=== PATIENT | female | born 1945 | race Caucasian/White ===

== ENCOUNTER → 2018-04-08 | Outpatient (CLI) | payer OTHER ==
[2015-08-28 12:11] VITALS: BP 161/82
== END ==
LOC: RAD 13:08
PROVIDERS: ATTEND Internal Medicine
DX: Z12.31 Encounter for screening mammogram for malignant neoplasm of breast (principal)
CPT/HCPCS: 77067

== ENCOUNTER 2023-07-14 10:34 | Inpatient (IN) ==
--- NOTE | 2023-07-14 11:32 | DR.EXTPAIN ---
HPI Time seen Time Seen by Provider: 07/14/23 11:31 PCP Primary Care Physician: marce Complaint/Symptoms Chief Complaint:: feet swelling and pain to the right leg up. face noted to be puffy and feels very weak like she is going to pass out. treated for h pylori per dr. zheng but has been having diarrhea for the last 3 weeks. yesterday was almost back to normal stool. Self Treatment fo Chief Complaint: taking meds for h pylori COVID-19 Coronavirus risk:travel/contact w/high risk person: No Has patient experienced Coronavirus symptoms: No Source History Provided: Patient Mode of arrival Mode of Arrival: Wheelchair Timing Onset of Chief Complaint: 07/11/23 PMH PMH Past Medical History: Yes Past Medical History: Dyslipidemia, Hypertension and Sleep Apnea Past Surgical History: Yes Surgical History: , Cholecystectomy, Hysterectomy and Ortho Surgery Family History History of Family Medical Conditions: Yes Family Medical History: Diabetes Mellitus, ID and Coronary Artery Disease Social History Does any household member use tobacco: No Alcohol Use: None Do you use any recreational Drugs:: No Lives With: Alone Lives Where: Home Travel Risk Coronavirus risk:travel/contact w/high risk person: No Has patient experienced Coronavirus symptoms: No Infectious screening In the last 2 months have you had wt loss of >10#?: NO Have you had fever, night sweats or hemotysis?: No Have you traveled outside the country in the last 6 months?: No Isolation: Standard PE Vital Signs Vitals: Vital Signs Pulse Rate 102 Pulse Rate 102 Pulse Rate 97 Pulse Rate 90 Pulse Rate 89 Pulse Rate 86 Pulse Rate 85 Pulse Rate 82 Pulse Rate 87 Pulse Rate 87 Pulse Rate 82 Pulse Rate 86 Pulse Rate 84 Pulse Rate 83 Pulse Rate 83 Pulse Rate 88 Pulse Rate 85 Pulse Rate 95 Respiratory Rate 16 Respiratory Rate 18 Respiratory Rate 19 Respiratory Rate 20 Respiratory Rate 16 Respiratory Rate 16 Respiratory Rate 16 Respiratory Rate 24 Respiratory Rate 20 Respiratory Rate 16 Respiratory Rate 15 Respiratory Rate 18 Respiratory Rate 17 Respiratory Rate 16 Respiratory Rate 15 Respiratory Rate 16 Respiratory Rate 19 Respiratory Rate 15 Respiratory Rate 21 Blood Pressure 149/67 Blood Pressure 145/69 Blood Pressure 144/67 Blood Pressure 177/77 Blood Pressure 138/60 Blood Pressure 139/63 Blood Pressure 177/74 ROR Labs Reviewed 07/14/23 11:56 07/14/23 11:56 Laboratory: WBC 6.4 X10^3/uL (3.6-10.0) 07/14/23 11:56 RBC 3.19 X10^6/uL (3.5-5.4) L 07/14/23 11:56 Hgb 9.9 g/dL (12.0-16.0) L 07/14/23 11:56 Hct 29.7 % (36.0-47.0) L 07/14/23 11:56 MCV 93.1 fL (80.0-100.0) 07/14/23 11:56 MCH 30.9 pg (27.0-34.0) 07/14/23 11:56 MCHC 33.2 g/dL (33.0-35.0) 07/14/23 11:56 RDW 14.0 % (11.6-16.5) 07/14/23 11:56 Plt Count 226 X10^3/uL (150.0-450.0) 07/14/23 11:56 MPV 6.8 fL (7.4-11.0) L 07/14/23 11:56 Neut % (Auto) 65.4 % (42.0-75.0) 07/14/23 11:56 Lymph % (Auto) 21.0 % (21.0-51.0) 07/14/23 11:56 [place] % (Auto) 11.4 % (0.0-13.0) 07/14/23 11:56 Eos % (Auto) 1.8 % (0.9-2.9) 07/14/23 11:56 Baso % (Auto) 0.4 % (0.2-1.0) 07/14/23 11:56 Neut # (Auto) 4.2 x10^3/uL (2.2-4.8) 07/14/23 11:56 Lymph # (Auto) 1.3 X10^3/uL (1.3-2.9) 07/14/23 11:56 [place] # (Auto) 0.7 x10^3/uL (0.3-0.8) 07/14/23 11:56 Eos # (Auto) 0.1 x10^3/uL (0.0-0.2) 07/14/23 11:56 Baso # (Auto) 0.0 X10^3/uL (0.0-0.1) 07/14/23 11:56 Absolute Nucleated RBC 0.0 /100WBC 07/14/23 11:56 Sodium 138 mmol/L (136-145) 07/14/23 11:56 Corrected Sodium TNP 07/14/23 11:56 Potassium 3.9 mmol/L (3.5-5.1) 07/14/23 11:56 Chloride 105 mmol/L (98-107) 07/14/23 11:56 Carbon Dioxide 26.2 mmol/L (21-32) 07/14/23 11:56 BUN 17 mg/dL (7-18) 07/14/23 11:56 Creatinine 1.35 mg/dL (0.55-1.02) H 07/14/23 11:56 Est GFR (MDRD) Af Amer 49 (>60) L 07/14/23 11:56 Est GFR (MDRD) Non-Af 40 (>60) L 07/14/23 11:56 Glucose 90 mg/dL (65-99) 07/14/23 11:56 Calcium 8.6 mg/dL (8.5-10.1) 07/14/23 11:56 Corrected Calcium 9.3 mg/dL (8.5-10.1) 07/14/23 11:56 Total Bilirubin 0.30 mg/dL (0.2-1.0) 07/14/23 11:56 AST 37 Units/L (15-37) 07/14/23 11:56 ALT 34 Units/L (12-78) 07/14/23 11:56 Alkaline Phosphatase 161 Units/L (46-116) H 07/14/23 11:56 Creatine Kinase 52 Units/L (26-192) 07/14/23 11:56 Troponin I High Sens 14.1 ng/L (4.0-60.0) 07/14/23 11:56 Total Protein 6.0 g/dL (6.4-8.2) L 07/14/23 11:56 Albumin 3.1 g/dL (3.4-5.0) L 07/14/23 11:56 Globulin 2.9 g/dL (2.5-4.5) 07/14/23 11:56 Albumin/Globulin Ratio 1.1 Ratio (1.1-2.1) 07/14/23 11:56 Specimen Type Clean catch urine 07/14/23 15:10 Urine Color Yellow (YELLOW) 07/14/23 15:10 Urine Appearance Clear (CLEAR) 07/14/23 15:10 Urine pH 5.0 (5.0 - 8.0) 07/14/23 15:10 Ur Specific [place] 1.020 (1.000-1.030) 07/14/23 15:10 Urine Protein Negative (NEGATIVE) 07/14/23 15:10 Urine Glucose (UA) Negative (NEGATIVE) 07/14/23 15:10 Urine Ketones Negative (NEGATIVE) 07/14/23 15:10 Urine Blood 2+ (NEGATIVE) 07/14/23 15:10 Urine Nitrite Negative (NEGATIVE) 07/14/23 15:10 Urine Bilirubin Negative (NEGATIVE) 07/14/23 15:10 Urine Urobilinogen Normal (NORMAL) 07/14/23 15:10 Ur Leukocyte Esterase Negative (NEGATIVE) 07/14/23 15:10 Urine RBC 0-2 /HPF (0-3) 07/14/23 15:10 Urine WBC None seen /HPF (0-5) 07/14/23 15:10 Ur Squamous Epith Cells Negative /HPF (NEGATIVE) 07/14/23 15:10 Urine Bacteria Negative /HPF (NEGATIVE) 07/14/23 15:10 Ur Culture Indicated? No/not indicated 07/14/23 15:10 SARS CoV-2 RNA Rapid JACOB Negative (NEGATIVE) 07/14/23 14:12 Opioid Opioid Risk Tool Age (Dragan box if 16-45): No History of Preadolescent Sexual Abuse: No Total: 0 Total Score Risk Category: Low Risk Copyright: Keyshawn GODDARD predicting aberrant behaviors Discharge Plan Discharge Plan Patient Disposition: 09 ADMITTED INPATIENT Condition: Stable Orders to Discharge Patient Discharge Orders: Transfer (Routine); Ordered 07/14/23 Ordered By: RAIN GARG
[2023-07-14] MEDS ORDERED: NS 1,000 ML IV 1,000 ML ONE (11:49)
[2023-07-14] MEDS: NS 1,000 ML IV 1,000 ML IV SCH (12:01)
--- NOTE | 2023-07-14 12:02 | EKG ---
Test Reason : HYPERTENSION Blood Pressure : */* mmHG Vent. Rate : 66 BPM Atrial Rate : 66 BPM P-R Int : 164 ms QRS Dur : 80 ms QT Int : 424 ms P-R-T Axes : 61 14 47 degrees QTc Int : 444 ms Normal sinus rhythm Septal infarct , age undetermined Abnormal ECG No previous ECGs available Referred By: Confirmed By:
[2023-07-14 12:11] LABS: BASOPHILS % (AUTO) 0.4 % (0.2-1.0); EOSINOPHILS # (AUTO) 0.1 x10^3/uL (0.0-0.2); EOSINOPHILS % (AUTO) 1.8 % (0.9-2.9); HEMATOCRIT 29.7 % (36.0-47.0); HEMOGLOBIN 9.9 g/dL (12.0-16.0); LYMPHOCYTES # (AUTO) 1.3 X10^3/uL (1.3-2.9); MEAN CORPUSCULAR HEMOGLOBIN 30.9 pg (27.0-34.0); MEAN CORPUSCULAR HGB CONC 33.2 g/dL (33.0-35.0); MEAN CORPUSCULAR VOLUME 93.1 fL (80.0-100.0); MEAN PLATELET VOLUME 6.8 fL (7.4-11.0); MONOCYTES # (AUTO) 0.7 x10^3/uL (0.3-0.8); MONOCYTES % (AUTO) 11.4 % (0.0-13.0); NEUTROPHILS # (AUTO) 4.2 x10^3/uL (2.2-4.8); NEUTROPHILS % (AUTO) 65.4 % (42.0-75.0); PLATELET COUNT 226 X10^3/uL (150.0-450.0); RED BLOOD COUNT 3.19 X10^6/uL (3.5-5.4); WHITE BLOOD COUNT 6.4 X10^3/uL (3.6-10.0)
[2023-07-14 12:22] LABS: ALANINE AMINOTRANSFERASE 34 Units/L (12-78); ALBUMIN 3.1 g/dL (3.4-5.0); ALKALINE PHOSPHATASE 161 Units/L (46-116); ASPARTATE AMINO TRANSFERASE 37 Units/L (15-37); BLOOD UREA NITROGEN 17 mg/dL (7-18); CALCIUM 8.6 mg/dL (8.5-10.1); CARBON DIOXIDE 26.2 mmol/L (21-32); CHLORIDE 105 mmol/L (98-107); COR CA(FOR HYPOALB) 9.3 mg/dL (8.5-10.1); CREATINE KINASE 52 Units/L (26-192); CREATININE 1.35 mg/dL (0.55-1.02); GLUCOSE 90 mg/dL (65-99); POTASSIUM 3.9 mmol/L (3.5-5.1); SODIUM 138 mmol/L (136-145); eGFR NON BLACK RACES 40 (>60)
--- NOTE | 2023-07-14 12:42 | RAD ---
HISTORYShortness of breathSTUDYChest AP portableCOMPARISON02 August 2020FINDINGSHeart size is normal. Linh are normal. Lung dixon are clear. No pleural effusions are identified. Bony thorax is unremarkable with the exception of right-sided glenohumeral joint degenerative joint disease and chronic rotator cuff disease. There is a spinal cord stimulator at the mid thoracic level.IMPRESSIONLungs clearElectronically signed by: STONE GARCIA (Jul 14, 2023 12:41:11)
[2023-07-14] MEDS ORDERED: ZOFRAN INJ 4 MG VIAL IVP ONE (15:17)
[2023-07-14] MEDS ORDERED: MORPHINE SULFATE INJ 2 MG INJ IVP ONE (15:17)
[2023-07-14] MEDS ORDERED: MORPHINE SULFATE INJ 2 MG INJ ONE (15:22)
[2023-07-14] MEDS ORDERED: ZOFRAN INJ 4 MG VIAL ONE (15:23)
[2023-07-14 15:25] LABS: BILIRUBIN,URINE NEGATIVE (NEGATIVE); BLOOD/HEMOGLOBIN,URINE 2+ (NEGATIVE); GLUCOSE, URINE NEGATIVE (NEGATIVE); KETONES,URINE NEGATIVE (NEGATIVE); LEUKOCYTE ESTERASE ,URINE NEGATIVE (NEGATIVE); NITRITES,URINE NEGATIVE (NEGATIVE); PROTEIN,URINE NEGATIVE (NEGATIVE); UROBILINOGEN,URINE NORMAL (NORMAL)
[2023-07-14 15:32] LABS: APPEARANCE,URINE CLEAR (CLEAR); COLOR,URINE YELLOW (YELLOW)
[2023-07-14 15:33] LABS: BACTERIA,URINE NEGATIVE /HPF (NEGATIVE); RBC,URINE 0-2 /HPF (0-3); SQUAMOUS EPITHELIAL CELL,UR NEGATIVE /HPF (NEGATIVE)
[2023-07-14] MEDS ORDERED: NORCO 10/325 TAB ONE (20:24)
[2023-07-14] MEDS: NORCO 10/325 TAB PO PRN (20:28)
[2023-07-14] MEDS: CIPRO IV 400 MG PREMIX* 400 MG/200 ML IV.SOLN. IV SCH (23:00)
[2023-07-15] MEDS: XANAX PO PRN ×3 (00:44→20:09)
[2023-07-15] MEDS: NORCO 10/325 TAB PO PRN ×3 (00:44→22:27)
[2023-07-15] MEDS: NS 1,000 ML IV 1,000 ML IV SCH ×2 (01:48→17:32)
[2023-07-15 05:32] LABS: BASOPHILS % (AUTO) 0.5 % (0.2-1.0); EOSINOPHILS # (AUTO) 0.1 x10^3/uL (0.0-0.2); EOSINOPHILS % (AUTO) 1.9 % (0.9-2.9); HEMATOCRIT 28.8 % (36.0-47.0); HEMOGLOBIN 9.8 g/dL (12.0-16.0); LYMPHOCYTES # (AUTO) 1.8 X10^3/uL (1.3-2.9); LYMPHOCYTES % (AUTO) 29.1 % (21.0-51.0); MEAN CORPUSCULAR HEMOGLOBIN 31.6 pg (27.0-34.0); MEAN CORPUSCULAR HGB CONC 34.1 g/dL (33.0-35.0); MEAN CORPUSCULAR VOLUME 92.6 fL (80.0-100.0); MONOCYTES # (AUTO) 0.7 x10^3/uL (0.3-0.8); MONOCYTES % (AUTO) 10.9 % (0.0-13.0); NEUTROPHILS # (AUTO) 3.6 x10^3/uL (2.2-4.8); NEUTROPHILS % (AUTO) 57.6 % (42.0-75.0); PLATELET COUNT 247 X10^3/uL (150.0-450.0); RED BLOOD COUNT 3.11 X10^6/uL (3.5-5.4); RED CELL DISTRIBUTION WIDTH 13.6 % (11.6-16.5); WHITE BLOOD COUNT 6.2 X10^3/uL (3.6-10.0)
[2023-07-15 05:45] LABS: ALANINE AMINOTRANSFERASE 26 Units/L (12-78); ALBUMIN 2.8 g/dL (3.4-5.0); ALKALINE PHOSPHATASE 152 Units/L (46-116); ASPARTATE AMINO TRANSFERASE 27 Units/L (15-37); BLOOD UREA NITROGEN 13 mg/dL (7-18); CARBON DIOXIDE 26.2 mmol/L (21-32); CHLORIDE 107 mmol/L (98-107); CREATININE 1.13 mg/dL (0.55-1.02); GLUCOSE 84 mg/dL (65-99); POTASSIUM 3.6 mmol/L (3.5-5.1); SODIUM 141 mmol/L (136-145); TOTAL PROTEIN 5.5 g/dL (6.4-8.2); eGFR NON BLACK RACES 49 (>60)
[2023-07-15] MEDS ORDERED: CONSULT PHARMACY - POTASSIUM & MAGNESIUM XX SCH ×2 (06:00→09:00)
[2023-07-15] MEDS ORDERED: SYNTHROID 150 mcg TAB PO SCH (09:00)
[2023-07-15] MEDS ORDERED: K-DUR TAB 20 MEQ PO SCH (09:00)
[2023-07-15] MEDS ORDERED: LOMOTIL PO PRN (10:07)
[2023-07-15] MEDS: CIPRO IV 400 MG PREMIX* 400 MG/200 ML IV.SOLN. IV SCH ×2 (10:28→20:14)
[2023-07-15] MEDS: PEPCID TAB 40 MG PO SCH ×5 (10:30→20:36)
[2023-07-15] MEDS ORDERED: PHARMACY CONSULT - TPN XX SCH (11:00)
[2023-07-15] MEDS: ALBUMIN HUMAN 25%- 100 ML 100 ML IV SCH (11:58)
--- NOTE | 2023-07-15 12:09 | DR.H&P ---
H&P - History & Physical for Day of: H&P Date: 07/14/23 - Chief Complaint Chief Complaint: swelling of hands and feet, intractable diarrhea, weakness - History of Present Illness History of Present Illness: IS A 78 YEAR OLD PATIENT OF OURS. SHE HAS A PMH OF DYSLIPIDEMIA, HTN, SLEEP APNEA, , CHOLECYSTECTOMY, AND HYSTERECTOMY. SHE PRESENTED TO THE ER WITH COMPLAINTS OF SWELLING AND PAIN OF THE HANDS AND FEET, INTRACTABLE DIARRHEA, AND GENERALIZED WEAKNESS. WE HAVE BEEN TREATING HER FOR H.PYLORI. SHE ADMITS THAT THE DIARRHEA HAS BEEN PRESENT FOR THE PAST 3 WEEKS. SHE DESCRIBES PAIN OF HANDS AND FEET ACHING AND INTERMITTENT. SHE RATES PAIN A 5/10. ON ARRIVAL, HER VITALS WERE: 98.1-76-16-98%-116/58. LABS WERE OBTAINED. WBC 6.4, RBC 3.19, HGB 9.9, HCT 29.7, PLT COUNT 226, SODIUM 138, POTASSIUM 3.9, CHLORIDE 105, CARBON DIOXIDE 26.2, BUN 17, CREATININE 1.35, GLUCOSE 90, CALCIUM 8.6, TOTAL BILI 0.30, AST 37, ALT 34, ALK PHOS 161, CREATINE KINASE 52, TROPONIN 14.1, TOTAL PROTEIN 6.0, ALBUMIN 3.1. URINALYSIS REVEALED: WBC 0-2. BACTERIA NEGATIVE, LEUKOCYTES NEGATIVE, BLOOD 2+. COVID-19 NEGATIVE. A CHEST XRAY WAS OBTAINED AND WAS UNREMARKABLE. EKG REVEALED: NORMAL SINUS RHYTHM WITH HR 66 BPM. IN THE ER, SHE WAS GIVEN MORPHINE 2MG IV X 1 DOSE, ZOFRAN 4MG IV X 1 DOSE. SHE WAS ADMITTED TO THE HOSPITAL OBSERVATION STATUS FOR FURTHER EVALUATION AND TREATMENT OF DEHYDRATION, INTRACTABLE DIARRHEA, AND GENERALIZED WEAKNESS. SHE WAS STARTED ON TPN, NORMAL SALINE AT 50 ML/HR, CIPRO 400MG IV Q12H, ALBUMIN 25% IV DAILY, TORADOL 30MG IV Q8H. HER HOME MEDICATIONS OF XANAX, LOMOTIL PRN, PEPCID, NORCO, AND SYNTHROID WERE RESUMED. WE WILL OBTAIN STOOL STUDIES, A URIC ACID LEVEL, AND A BNP. OTHERWISE, WE WILL FOLLOW UP WITH AM LABS AND CONTINUE TO MONITOR. TIME SPENT ON CLINICAL ASSESSMENT, REVIEWING LABS AND IMAGING, DECISION MAKING, AND DOCUMENTATION GREATER THAN 75 MINUTES. - Past Medical History Past Medical History: Hypertension, Dyslipidemia, Sleep Apnea - Past Surgical History Surgical History: Cholecystectomy, , Hysterectomy, Ortho Surgery - Family History Family Medical History: Diabetes Mellitus, DC, Coronary Artery Disease - Social History Does any household member use tobacco: No Alcohol Use: None Drug Use: None - Review of Systems Constitutional: Weakness. denies: Fever, Chills Eyes: No Symptoms Reported ENT: No Symptoms Reported Respiratory: No Symptoms Reported Cardiovascular: No Symptoms Reported Gastrointestinal: See HPI, Nausea, Diarrhea. denies: Vomiting, Constipation Genitourinary: No Symptoms Reported Musculoskeletal: See HPI Skin: No Symptoms Reported Neurological: Weakness - Physical Exam Vital Signs: Vital Signs Pulse Rate [Left Apical] 87 Respiratory Rate 12 Blood Pressure [Left Arm] 141/66 O2 Sat by Pulse Oximetry 100 Oriented: Normal Eyes: Normal Ear: Normal Nose: Normal Throat: Normal Respiratory: Diminished Throughout Cardiovascular: Normal : Normal Auscultation: Bowel Sounds: Normal Palpation: Normal Tenderness: Diffuse, Mild Skin: Decreased Turgur Musculoskeletal: Hand, Leg, Foot, Swelling Psychiatric: Normal Mood Description: Calm Affect: Normal Speech Pattern: Clear - Assessment/Plan (1) Dehydration Status: Acute Plan: ADMIT, TPN, NORMAL SALINE AT 50 ML/HR, CIPRO 400MG IV Q12H, ALBUMIN 25% IV DAILY, TORADOL 30MG IV Q8H. RESUME HOME MEDS (2) Intractable diarrhea Status: Acute Plan: obtain stool studies (3) Generalized weakness Status: Acute (4) Generalized anxiety disorder Status: Chronic Plan: continue xanax (5) GERD (gastroesophageal reflux disease) Qualifiers: Esophagitis presence: esophagitis presence not specified Qualified Code(s): K21.9 - Gastro-esophageal reflux disease without esophagitis Status: Chronic Plan: continue pepcid (6) Hypothyroidism Qualifiers: Hypothyroidism type: acquired Qualified Code(s): E03.9 - Hypothyroidism, unspecified Status: Chronic Plan: continue synthroid - Allergies Allergies/Adverse Reactions: Allergies Allergy/AdvReac Type Severity Reaction Status Date / Time codeine Allergy Verified 07/14/23 10:54 hydromorphone [From Dilaudid] Allergy Verified 07/14/23 10:54 latex Allergy Verified 07/14/23 10:54 penicillin G Allergy Verified 07/14/23 10:54 Sulfa (Sulfonamide Allergy Verified 07/14/23 10:54 Antibiotics) [SULFA] biotin AdvReac Verified 07/14/23 10:54 - Medications Home Medications: Home Medications Medication Instructions Recorded Confirmed alprazolam 1 mg tablet 1 mg PO TID PRN 07/14/23 07/14/23 ciprofloxacin HCl 750 mg tablet 750 mg PO BID 07/14/23 07/14/23 diphenoxylate-atropine 2.5 1 tab PO QID 07/14/23 07/14/23 mg-0.025 mg tablet (Lomotil) famotidine 40 mg tablet 40 mg PO BID 07/14/23 07/14/23 hydrocodone 10 mg-acetaminophen 1 tab PO Q4-6H PRN 07/14/23 07/14/23 325 mg tablet levothyroxine 150 mcg tablet 150 mcg PO QDAY 07/14/23 07/14/23
[2023-07-15 12:13] LABS: URIC ACID 4.4 mg/dL (2.6-6.0)
[2023-07-15] MEDS ORDERED: DRUG FILTER EXTENSION SET ONE (12:19)
[2023-07-15] MEDS: MAG-OX TAB PO SCH ×4 (12:54→16:50)
[2023-07-15] MEDS ORDERED: CLINIMIX IV SCH ×4 (13:00)
[2023-07-15] MEDS ORDERED: POTASSIUM CHLORIDE IV SCH ×4 (13:00)
[2023-07-15] MEDS ORDERED: [UNRECOGNIZED DRUG - OTHER] IV SCH ×4 (13:00)
[2023-07-15] MEDS: TORADOL 30 MG VIAL IVP SCH ×2 (13:10→20:10)
[2023-07-15 15:17] LABS: CRYPTOSPORIDIUM PARVUM ANTIGEN NEGATIVE (NEGATIVE); GIARDIA LAMBLIA ANTIGEN NEGATIVE (NEGATIVE)
[2023-07-15] MEDS: VOLTAREN 1 % GEL MULTI DOSE TUBE TOP SCH (21:45)
[2023-07-16] MEDS: RESTORIL CAP 15 MG PO PRN ×2 (00:53→21:10)
[2023-07-16] MEDS: NS 1,000 ML IV 1,000 ML IV SCH ×3 (00:54→22:16)
[2023-07-16] MEDS: TORADOL 30 MG VIAL IVP SCH ×3 (03:40→22:16)
[2023-07-16] MEDS: XANAX PO PRN ×3 (03:40→21:08)
[2023-07-16] MEDS: VOLTAREN 1 % GEL MULTI DOSE TUBE TOP SCH ×3 (05:11→21:34)
[2023-07-16] MEDS: SYNTHROID 150 mcg TAB PO SCH (05:11)
[2023-07-16 05:32] LABS: ALANINE AMINOTRANSFERASE 24 Units/L (12-78); ALKALINE PHOSPHATASE 151 Units/L (46-116); ASPARTATE AMINO TRANSFERASE 32 Units/L (15-37); BLOOD UREA NITROGEN 16 mg/dL (7-18); CALCIUM 8.3 mg/dL (8.5-10.1); CARBON DIOXIDE 27.8 mmol/L (21-32); CHLORIDE 107 mmol/L (98-107); COR CA(FOR HYPOALB) 9.1 mg/dL (8.5-10.1); CREATININE 1.07 mg/dL (0.55-1.02); GLUCOSE 97 mg/dL (65-99); MAGNESIUM 1.8 mg/dL (2.0-2.9); POTASSIUM 3.9 mmol/L (3.5-5.1); SODIUM 140 mmol/L (136-145); TOTAL PROTEIN 5.8 g/dL (6.4-8.2); eGFR NON BLACK RACES 52 (>60)
[2023-07-16] MEDS ORDERED: CONSULT PHARMACY - POTASSIUM & MAGNESIUM XX SCH (06:00)
[2023-07-16] MEDS: PEPCID TAB 40 MG PO SCH ×2 (09:08→21:10)
[2023-07-16] MEDS: ALBUMIN HUMAN 25%- 100 ML 100 ML IV SCH (09:08)
[2023-07-16] MEDS: CIPRO IV 400 MG PREMIX* 400 MG/200 ML IV.SOLN. IV SCH ×2 (09:08→21:12)
[2023-07-16] MEDS: MAG-OX TAB PO SCH ×3 (09:09→21:08)
[2023-07-16] MEDS: PROTONIX INJ 40 MG VIAL IVP SCH ×2 (10:18→21:12)
--- NOTE | 2023-07-16 12:14 | PCM.PROG ---
Progress Note - Progress Note for Day of Date of Exam: 07/16/23 - Subjective Subjective: IS CURRENTLY OBSERVATION STATUS FOR TREATMENT OF DEHYDRATION, DIARRHEA, GENERALIZED WEAKNESS, AND GENERALIZED BODY ACHES. SHE HAS A PMH OF DYSLIPIDEMIA, HTN, SLEEP APNEA, , CHOLECYSTECTOMY, AND HYSTERECTOMY. TODAY, SHE IS LYING IN BED WITH EYES CLOSED ON MORNING ROUNDS. SHE AWAKENED TO VERBAL STIMULI. SHE REPORTS HAVING AN UNEVENTFUL NIGHT. SHE CONTINUES TO COMPLAIN OF GENERALIZED WEAKNESS, LOOSE STOOLS, AND BODY ACHES. SHE DENIES SIGNIFICANT IMPROVEMENT IN SYMPTOMS SINCE ADMISSION. ON EXAMINATION, HEART IS REGULAR IN RATE AND RHYTHM. BILATERAL LUNGS ARE NOTED WITH DIMINISHED LUNG SOUNDS THROUGHOUT. ABDOMEN IS ROUND, SOFT, AND NOTED WITH MILD, DIFFUSE TENDERNESS. NORMAL BOWEL SOUNDS NOTED IN ALL QUADRANTS. GOOD ROM NOTED TO UPPER AND LOWER EXTREMITIES WITH NO EDEMA NOTED. HER VITALS THIS MORNING ARE: 97.7-78-20-98%-165/70. LABS WERE OBTAINED. SODIUM 140, POTASSIUM 3.9, CHLORIDE 107, BUN 16, CREATININE 1.07, GLUCOSE 97, CALCIUM 8.3, MAGNESIUM 1.8, AST 32, ALT 24, ALK PHOS 151, TOTAL PROTEIN 5.8, ALBUMIN 3.0. STOOLS WERE POSITIVE FOR WBC AND OCCULT BLOOD. SHE IS CURRENTLY RECEIVING TPN, NORMAL SALINE AT 50 ML/HR, CIPRO 400MG IV Q12H, ALBUMIN 25% IV DAILY, TORADOL 30MG IV Q8H, VOLTAREN GEL TID, PEPCID 40MG BID. HER HOME MEDICATIONS OF XANAX, LOMOTIL PRN, PEPCID, NORCO, AND SYNTHROID WERE RESUMED. TODAY, WE WILL ADD PROTONIX 40MG BID. OTHERWISE, WE WILL CONTINUE WITH CURRENT PLAN OF CARE. WE WILL FOLLOW UP WITH AM LABS AND CONTINUE TO MONITOR. TIME SPENT ON CLINICAL ASSESSMENT, REVIEWING LABS AND IMAGING, DECISION MAKING, AND DOCUMENTATION GREATER THAN 45 MINUTES. - Past Medical Family Social History Past Med/Fam/Surg Hx: No changes since H&P Allergies: Allergies codeine Allergy (Verified 07/14/23 10:54) hydromorphone [From Dilaudid] Allergy (Verified 07/14/23 10:54) latex Allergy (Verified 07/14/23 10:54) penicillin G Allergy (Verified 07/14/23 10:54) Sulfa (Sulfonamide Antibiotics) [SULFA] Allergy (Verified 07/14/23 10:54) biotin Adverse Reaction (Verified 07/14/23 10:54) - Review of Systems ROS: No change since H&P - Vital Signs and I&O's Vital Signs: Vital Signs Temperature 97.7 F Pulse Rate [Left Apical] 78 Respiratory Rate 18 Respiratory Rate 20 Respiratory Rate 18 Blood Pressure [Right Arm] 165/70 O2 Sat by Pulse Oximetry 98 Intake and Output: Intake & Output 07/14/23 07/15/23 07/16/23 07/17/23 11:59 11:59 11:59 11:59 Intake Total 1696 / 1696 Balance 1696 - Physical Exam Oriented: Normal Eyes: Normal Ear: Normal Nose: Normal Throat: Normal Respiratory: Generalized, Diminished Cardiovascular: Normal : Normal Auscultation: Bowel Sounds: Normal Palpation: Normal Tenderness: Diffuse, Mild Skin: Decreased [place] Musculoskeletal: Hand, Leg, Foot, Swelling Psychiatric: Normal Mood Description: Calm Affect: Normal Speech Pattern: Clear, Appropriate - Laboratory and Diagnostics Result Diagrams: 07/15/23 04:47 07/16/23 04:45 Labs: 07/15/23 14:00 Stool Stool Culture - Preliminary 07/15/23 14:00 Stool - Final Laboratory WBC 6.2 X10^3/uL (3.6-10.0) 07/15/23 04:47 RBC 3.11 X10^6/uL (3.5-5.4) L 07/15/23 04:47 Hgb 9.8 g/dL (12.0-16.0) L 07/15/23 04:47 Hct 28.8 % (36.0-47.0) L 07/15/23 04:47 MCV 92.6 fL (80.0-100.0) 07/15/23 04:47 MCH 31.6 pg (27.0-34.0) 07/15/23 04:47 MCHC 34.1 g/dL (33.0-35.0) 07/15/23 04:47 RDW 13.6 % (11.6-16.5) 07/15/23 04:47 Plt Count 247 X10^3/uL (150.0-450.0) 07/15/23 04:47 MPV 7.0 fL (7.4-11.0) L 07/15/23 04:47 Neut % (Auto) 57.6 % (42.0-75.0) 07/15/23 04:47 Lymph % (Auto) 29.1 % (21.0-51.0) 07/15/23 04:47 [place] % (Auto) 10.9 % (0.0-13.0) 07/15/23 04:47 Eos % (Auto) 1.9 % (0.9-2.9) 07/15/23 04:47 Baso % (Auto) 0.5 % (0.2-1.0) 07/15/23 04:47 Neut # (Auto) 3.6 x10^3/uL (2.2-4.8) 07/15/23 04:47 Lymph # (Auto) 1.8 X10^3/uL (1.3-2.9) 07/15/23 04:47 [place] # (Auto) 0.7 x10^3/uL (0.3-0.8) 07/15/23 04:47 Eos # (Auto) 0.1 x10^3/uL (0.0-0.2) 07/15/23 04:47 Baso # (Auto) 0.0 X10^3/uL (0.0-0.1) 07/15/23 04:47 Absolute Nucleated RBC 0.0 /100WBC 07/15/23 04:47 Sodium 140 mmol/L (136-145) 07/16/23 04:45 Corrected Sodium TNP 07/16/23 04:45 Potassium 3.9 mmol/L (3.5-5.1) 07/16/23 04:45 Chloride 107 mmol/L (98-107) 07/16/23 04:45 Carbon Dioxide 27.8 mmol/L (21-32) 07/16/23 04:45 BUN 16 mg/dL (7-18) 07/16/23 04:45 Creatinine 1.07 mg/dL (0.55-1.02) H 07/16/23 04:45 Est GFR (MDRD) Af Amer > 60 (>60) 07/16/23 04:45 Est GFR (MDRD) Non-Af 52 (>60) L 07/16/23 04:45 Glucose 97 mg/dL (65-99) 07/16/23 04:45 Uric Acid 4.4 mg/dL (2.6-6.0) 07/15/23 04:49 Calcium 8.3 mg/dL (8.5-10.1) L 07/16/23 04:45 Corrected Calcium 9.1 mg/dL (8.5-10.1) 07/16/23 04:45 Magnesium 1.8 mg/dL (2.0-2.9) L 07/16/23 04:45 Total Bilirubin 0.30 mg/dL (0.2-1.0) 07/16/23 04:45 AST 32 Units/L (15-37) 07/16/23 04:45 ALT 24 Units/L (12-78) 07/16/23 04:45 Alkaline Phosphatase 151 Units/L (46-116) H 07/16/23 04:45 Creatine Kinase 52 Units/L (26-192) 07/14/23 11:56 Troponin I High Sens 14.1 ng/L (4.0-60.0) 07/14/23 11:56 B-Natriuretic Peptide 382 pg/mL (0-79) H 07/15/23 04:49 Total Protein 5.8 g/dL (6.4-8.2) L 07/16/23 04:45 Albumin 3.0 g/dL (3.4-5.0) L 07/16/23 04:45 Globulin 2.8 g/dL (2.5-4.5) 07/16/23 04:45 Albumin/Globulin Ratio 1.1 Ratio (1.1-2.1) 07/16/23 04:45 Specimen Type Clean catch urine 07/14/23 15:10 Urine Color Yellow (YELLOW) 07/14/23 15:10 Urine Appearance Clear (CLEAR) 07/14/23 15:10 Urine pH 5.0 (5.0 - 8.0) 07/14/23 15:10 Ur Specific [place] 1.020 (1.000-1.030) 07/14/23 15:10 Urine Protein Negative (NEGATIVE) 07/14/23 15:10 Urine Glucose (UA) Negative (NEGATIVE) 07/14/23 15:10 Urine Ketones Negative (NEGATIVE) 07/14/23 15:10 Urine Blood 2+ (NEGATIVE) 07/14/23 15:10 Urine Nitrite Negative (NEGATIVE) 07/14/23 15:10 Urine Bilirubin Negative (NEGATIVE) 07/14/23 15:10 Urine Urobilinogen Normal (NORMAL) 07/14/23 15:10 Ur Leukocyte Esterase Negative (NEGATIVE) 07/14/23 15:10 Urine RBC 0-2 /HPF (0-3) 07/14/23 15:10 Urine WBC None seen /HPF (0-5) 07/14/23 15:10 Ur Squamous Epith Cells Negative /HPF (NEGATIVE) 07/14/23 15:10 Urine Bacteria Negative /HPF (NEGATIVE) 07/14/23 15:10 Ur Culture Indicated? No/not indicated 07/14/23 15:10 Stl Occult Blood (IFOB) Positive (NEGATIVE) A 07/15/23 14:00 Stool for White Cells Positive (NEGATIVE) A 07/15/23 14:00 Stl C. diff Tox B Gene Negative (NEGATIVE) 07/15/23 14:00 Stl C. diff [id number] Presumptive negative (NEGATIVE) 07/15/23 14:00 Stool H. pylori Ag Negative (NEGATIVE) 07/15/23 14:00 Cryptosporid parvum Ag Negative (NEGATIVE) 07/15/23 14:00 Giardia lamblia Ag Negative (NEGATIVE) 07/15/23 14:00 SARS CoV-2 RNA Rapid JACOB Negative (NEGATIVE) 07/14/23 14:12 - Plan (1) Dehydration Status: Acute Plan: TPN, NORMAL SALINE AT 50 ML/HR, CIPRO 400MG IV Q12H, ALBUMIN 25% IV DAILY, TORADOL 30MG IV Q8H, VOLTAREN GEL TID, PEPCID 40MG BID. RESUME HOME MEDS (2) Intractable diarrhea Status: Acute (3) Generalized weakness Status: Acute (4) Generalized anxiety disorder Status: Chronic Plan: continue xanax (5) GERD (gastroesophageal reflux disease) Status: Chronic Qualifiers: Esophagitis presence: esophagitis presence not specified Qualified Code(s): K21.9 - Gastro-esophageal reflux disease without esophagitis Plan: continue pepcid, add protonix (6) Hypothyroidism Status: Chronic Qualifiers: Hypothyroidism type: acquired Qualified Code(s): E03.9 - Hypothyroidism, unspecified Plan: continue synthroid
[2023-07-16] MEDS: REQUIP PO SCH ×2 (14:30→21:09)
[2023-07-16] MEDS: ZESTORETIC 20/25 MG PO SCH (15:20)
[2023-07-16] MEDS: EFFEXOR XR 150 MG CAP 24-HR PO SCH (15:50)
[2023-07-16 16:59] VITALS: BMI 30.5
[2023-07-16] MEDS: NORCO 10/325 TAB PO PRN (21:11)
[2023-07-17] MEDS: TORADOL 30 MG VIAL IVP SCH ×3 (03:32→21:00)
[2023-07-17] MEDS: VOLTAREN 1 % GEL MULTI DOSE TUBE TOP SCH ×3 (05:26→23:14)
[2023-07-17] MEDS: SYNTHROID 150 mcg TAB PO SCH (05:26)
[2023-07-17 05:31] LABS: BASOPHILS % (AUTO) 0.4 % (0.2-1.0); EOSINOPHILS # (AUTO) 0.2 x10^3/uL (0.0-0.2); EOSINOPHILS % (AUTO) 2.7 % (0.9-2.9); HEMATOCRIT 30.2 % (36.0-47.0); HEMOGLOBIN 10.5 g/dL (12.0-16.0); LYMPHOCYTES # (AUTO) 1.8 X10^3/uL (1.3-2.9); LYMPHOCYTES % (AUTO) 25.1 % (21.0-51.0); MEAN CORPUSCULAR HEMOGLOBIN 31.6 pg (27.0-34.0); MEAN CORPUSCULAR HGB CONC 34.7 g/dL (33.0-35.0); MEAN CORPUSCULAR VOLUME 91.1 fL (80.0-100.0); MONOCYTES # (AUTO) 0.7 x10^3/uL (0.3-0.8); MONOCYTES % (AUTO) 9.9 % (0.0-13.0); NEUTROPHILS # (AUTO) 4.3 x10^3/uL (2.2-4.8); NEUTROPHILS % (AUTO) 61.9 % (42.0-75.0); PLATELET COUNT 258 X10^3/uL (150.0-450.0); RED BLOOD COUNT 3.32 X10^6/uL (3.5-5.4); RED CELL DISTRIBUTION WIDTH 13.5 % (11.6-16.5)
[2023-07-17 05:48] LABS: ALANINE AMINOTRANSFERASE 25 Units/L (12-78); ALBUMIN 3.3 g/dL (3.4-5.0); ALKALINE PHOSPHATASE 129 Units/L (46-116); ASPARTATE AMINO TRANSFERASE 23 Units/L (15-37); BLOOD UREA NITROGEN 15 mg/dL (7-18); CALCIUM 8.4 mg/dL (8.5-10.1); CARBON DIOXIDE 26.8 mmol/L (21-32); CHLORIDE 106 mmol/L (98-107); CREATININE 0.88 mg/dL (0.55-1.02); GLUCOSE 87 mg/dL (65-99); MAGNESIUM 1.9 mg/dL (2.0-2.9); POTASSIUM 3.5 mmol/L (3.5-5.1); SODIUM 139 mmol/L (136-145); TOTAL PROTEIN 6.1 g/dL (6.4-8.2); eGFR NON BLACK RACES > 60 (>60)
[2023-07-17] MEDS ORDERED: CONSULT PHARMACY - POTASSIUM & MAGNESIUM XX SCH ×2 (07:00→08:00)
[2023-07-17] MEDS: PROTONIX INJ 40 MG VIAL IVP SCH ×2 (08:49→20:00)
[2023-07-17] MEDS: ALBUMIN HUMAN 25%- 100 ML 100 ML IV SCH (08:50)
[2023-07-17] MEDS: CIPRO IV 400 MG PREMIX* 400 MG/200 ML IV.SOLN. IV SCH (08:50)
[2023-07-17] MEDS: REQUIP PO SCH ×2 (08:50→20:01)
[2023-07-17] MEDS: EFFEXOR XR 150 MG CAP 24-HR PO SCH (08:51)
[2023-07-17] MEDS: MAG-OX TAB PO SCH ×2 (08:51→20:01)
[2023-07-17] MEDS: ZESTORETIC 20/25 MG PO SCH (08:51)
[2023-07-17] MEDS: PEPCID TAB 40 MG PO SCH ×2 (08:51→20:01)
[2023-07-17] MEDS ORDERED: K-DUR TAB 20 MEQ PO SCH (09:00)
[2023-07-17] MEDS ORDERED: MAG-OX TAB PO SCH ×2 (09:00→10:00)
[2023-07-17] MEDS: NS + KCL 20 MEQ/L 1,000 ML IV SCH ×2 (09:13→21:15)
[2023-07-17] MEDS: ZyrTEC TAB 10 MG PO SCH (10:22)
--- NOTE | 2023-07-17 11:20 | PCM.PROG ---
Progress Note - Progress Note for Day of Date of Exam: 07/17/23 - Subjective Subjective: IS CURRENTLY OBSERVATION STATUS FOR TREATMENT OF DEHYDRATION, DIARRHEA, GENERALIZED WEAKNESS, AND GENERALIZED BODY ACHES. SHE HAS A PMH OF DYSLIPIDEMIA, HTN, SLEEP APNEA, , CHOLECYSTECTOMY, AND HYSTERECTOMY. TODAY, SHE IS LYING IN BED WITH EYES CLOSED ON MORNING ROUNDS. SHE AWAKENED TO VERBAL STIMULI. SHE REPORTS HAVING AN UNEVENTFUL NIGHT. SHE CONTINUES TO COMPLAIN OF GENERALIZED WEAKNESS, BUT DENIES ANY EPISODES OF DIARRHEA. OVERALL, SHE DOES REPORT FEELING SOME BETTER SINCE ADMISSION. ON EXAMINATION, HEART IS REGULAR IN RATE AND RHYTHM. BILATERAL LUNGS ARE NOTED WITH DIMINISHED LUNG SOUNDS THROUGHOUT. ABDOMEN IS ROUND, SOFT, AND NOTED WITH MILD, DIFFUSE TENDERNESS. NORMAL BOWEL SOUNDS NOTED IN ALL QUADRANTS. GOOD RANGE OF MOTION NOTED TO UPPER AND LOWER EXTREMITIES WITH NO EDEMA NOTED. HER VITALS THIS MORNING ARE: 97.6-80-20-97%-136/63. LABS WERE OBTAINED. WBC 7.0, RBC 3.32, HGB 10.5, HCT 30.2, SODIUM 139, POTASSIUM 3.5, CHLORIDE 106, BUN 15, CREATININE 0.8 8, GLUCOSE 87, CALCIUM 8.4, MAGNESIUM 1.9, AST 23, ALT 25, ALK PHOS 129, TOTAL PROTEIN 6.1, ALBUMIN 3.3. STOOLS WERE POSITIVE FOR WBC AND OCCULT BLOOD. SHE IS CURRENTLY RECEIVING TPN, NORMAL SALINE AT 50 ML/HR, CIPRO 400MG IV Q12H, ALBUMIN 25% IV DAILY, PROTONIX 40MG BID, TORADOL 30MG IV Q8H, VOLTAREN GEL TID, PEPCID 40MG BID, SINGULAIR 10MG HS, ZYRTEC 10MG DAILY. HER HOME MEDICATIONS OF XANAX, LOMOTIL PRN, PEPCID, NORCO, AND SYNTHROID WERE RESUMED. WE WILL CONTINUE WITH CURRENT PLAN OF CARE TODAY. OTHERWISE, WE WILL FOLLOW UP WITH AM LABS AND CONTINUE TO MONITOR. TIME SPENT ON CLINICAL ASSESSMENT, REVIEWING LABS AND IMAGING, DECISION MAKING, AND DOCUMENTATION GREATER THAN 45 MINUTES. - Past Medical Family Social History Past Med/Fam/Surg Hx: No changes since H&P Allergies: Allergies codeine Allergy (Verified 07/14/23 10:54) hydromorphone [From Dilaudid] Allergy (Verified 07/14/23 10:54) latex Allergy (Verified 07/14/23 10:54) penicillin G Allergy (Verified 07/14/23 10:54) Sulfa (Sulfonamide Antibiotics) [SULFA] Allergy (Verified 07/14/23 10:54) biotin Adverse Reaction (Verified 07/14/23 10:54) - Review of Systems ROS: No change since H&P - Vital Signs and I&O's Vital Signs: Vital Signs Temperature 97.6 F Temperature 97.6 F Pulse Rate [Left Apical] 80 Pulse Rate [Left Apical] 80 Respiratory Rate 20 Respiratory Rate 18 Respiratory Rate 18 Respiratory Rate 18 Blood Pressure [Right Arm] 136/63 Blood Pressure [Right Arm] 146/70 O2 Sat by Pulse Oximetry 97 O2 Sat by Pulse Oximetry 98 Intake and Output: Intake & Output 07/14/23 07/15/23 07/16/23 07/17/23 11:59 11:59 11:59 11:59 Intake Total 1696 / 1697 1909 / 2273 Balance 169 / 1697 1909 / 2273 - Physical Exam Oriented: Normal Eyes: Normal Ear: Normal Nose: Normal Throat: Normal Respiratory: Generalized, Diminished Cardiovascular: Normal : Normal Auscultation: Bowel Sounds: Normal Palpation: Normal Tenderness: Diffuse, Mild Skin: Decreased Turgur Musculoskeletal: Hand, Leg, Foot, Swelling Psychiatric: Normal Mood Description: Calm Affect: Normal Speech Pattern: Clear, Appropriate - Laboratory and Diagnostics Result Diagrams: 07/17/23 04:55 07/17/23 04:55 Labs: 07/15/23 14:00 Stool Stool Culture - Final 07/15/23 14:00 Stool - Final Laboratory WBC 7.0 X10^3/uL (3.6-10.0) 07/17/23 04:55 RBC 3.32 X10^6/uL (3.5-5.4) L 07/17/23 04:55 Hgb 10.5 g/dL (12.0-16.0) L 07/17/23 04:55 Hct 30.2 % (36.0-47.0) L 07/17/23 04:55 MCV 91.1 fL (80.0-100.0) 07/17/23 04:55 MCH 31.6 pg (27.0-34.0) 07/17/23 04:55 MCHC 34.7 g/dL (33.0-35.0) 07/17/23 04:55 RDW 13.5 % (11.6-16.5) 07/17/23 04:55 Plt Count 258 X10^3/uL (150.0-450.0) 07/17/23 04:55 MPV 7.0 fL (7.4-11.0) L 07/17/23 04:55 Neut % (Auto) 61.9 % (42.0-75.0) 07/17/23 04:55 Lymph % (Auto) 25.1 % (21.0-51.0) 07/17/23 04:55 Hall % (Auto) 9.9 % (0.0-13.0) 07/17/23 04:55 Eos % (Auto) 2.7 % (0.9-2.9) 07/17/23 04:55 Baso % (Auto) 0.4 % (0.2-1.0) 07/17/23 04:55 Neut # (Auto) 4.3 x10^3/uL (2.2-4.8) 07/17/23 04:55 Lymph # (Auto) 1.8 X10^3/uL (1.3-2.9) 07/17/23 04:55 Hall # (Auto) 0.7 x10^3/uL (0.3-0.8) 07/17/23 04:55 Eos # (Auto) 0.2 x10^3/uL (0.0-0.2) 07/17/23 04:55 Baso # (Auto) 0.0 X10^3/uL (0.0-0.1) 07/17/23 04:55 Absolute Nucleated RBC 0.1 /100WBC 07/17/23 04:55 Sodium 139 mmol/L (136-145) 07/17/23 04:55 Corrected Sodium TNP 07/17/23 04:55 Potassium 3.5 mmol/L (3.5-5.1) 07/17/23 04:55 Chloride 106 mmol/L (98-107) 07/17/23 04:55 Carbon Dioxide 26.8 mmol/L (21-32) 07/17/23 04:55 BUN 15 mg/dL (7-18) 07/17/23 04:55 Creatinine 0.88 mg/dL (0.55-1.02) 07/17/23 04:55 Est GFR (MDRD) Af Amer > 60 (>60) 07/17/23 04:55 Est GFR (MDRD) Non-Af > 60 (>60) 07/17/23 04:55 Glucose 87 mg/dL (65-99) 07/17/23 04:55 Uric Acid 4.4 mg/dL (2.6-6.0) 07/15/23 04:49 Calcium 8.4 mg/dL (8.5-10.1) L 07/17/23 04:55 Corrected Calcium 9.0 mg/dL (8.5-10.1) 07/17/23 04:55 Magnesium 1.9 mg/dL (2.0-2.9) L 07/17/23 04:55 Total Bilirubin 0.30 mg/dL (0.2-1.0) 07/17/23 04:55 AST 23 Units/L (15-37) 07/17/23 04:55 ALT 25 Units/L (12-78) 07/17/23 04:55 Alkaline Phosphatase 129 Units/L (46-116) H 07/17/23 04:55 Creatine Kinase 52 Units/L (26-192) 07/14/23 11:56 Troponin I High Sens 14.1 ng/L (4.0-60.0) 07/14/23 11:56 B-Natriuretic Peptide 382 pg/mL (0-79) H 07/15/23 04:49 Total Protein 6.1 g/dL (6.4-8.2) L 07/17/23 04:55 Albumin 3.3 g/dL (3.4-5.0) L 07/17/23 04:55 Globulin 2.8 g/dL (2.5-4.5) 07/17/23 04:55 Albumin/Globulin Ratio 1.2 Ratio (1.1-2.1) 07/17/23 04:55 Specimen Type Clean catch urine 07/14/23 15:10 Urine Color Yellow (YELLOW) 07/14/23 15:10 Urine Appearance Clear (CLEAR) 07/14/23 15:10 Urine pH 5.0 (5.0 - 8.0) 07/14/23 15:10 Ur Specific [place] 1.020 (1.000-1.030) 07/14/23 15:10 Urine Protein Negative (NEGATIVE) 07/14/23 15:10 Urine Glucose (UA) Negative (NEGATIVE) 07/14/23 15:10 Urine Ketones Negative (NEGATIVE) 07/14/23 15:10 Urine Blood 2+ (NEGATIVE) 07/14/23 15:10 Urine Nitrite Negative (NEGATIVE) 07/14/23 15:10 Urine Bilirubin Negative (NEGATIVE) 07/14/23 15:10 Urine Urobilinogen Normal (NORMAL) 07/14/23 15:10 Ur Leukocyte Esterase Negative (NEGATIVE) 07/14/23 15:10 Urine RBC 0-2 /HPF (0-3) 07/14/23 15:10 Urine WBC None seen /HPF (0-5) 07/14/23 15:10 Ur Squamous Epith Cells Negative /HPF (NEGATIVE) 07/14/23 15:10 Urine Bacteria Negative /HPF (NEGATIVE) 07/14/23 15:10 Ur Culture Indicated? No/not indicated 07/14/23 15:10 Stl Occult Blood (IFOB) Positive (NEGATIVE) A 07/15/23 14:00 Stool for White Cells Positive (NEGATIVE) A 07/15/23 14:00 Stl C. diff Tox B Gene Negative (NEGATIVE) 07/15/23 14:00 Stl C. diff [id number] Presumptive negative (NEGATIVE) 07/15/23 14:00 Stool H. pylori Ag Negative (NEGATIVE) 07/15/23 14:00 Cryptosporid parvum Ag Negative (NEGATIVE) 07/15/23 14:00 Giardia lamblia Ag Negative (NEGATIVE) 07/15/23 14:00 SARS CoV-2 RNA Rapid JACOB Negative (NEGATIVE) 07/14/23 14:12 - Plan (1) Dehydration Status: Acute Plan: TPN, NORMAL SALINE AT 50 ML/HR, CIPRO 400MG IV Q12H, ALBUMIN 25% IV DAILY, PROTONIX 40MG BID, TORADOL 30MG IV Q8H, VOLTAREN GEL TID, PEPCID 40MG BID, SINGULAIR 10MG HS, ZYRTEC 10MG DAILY (2) Intractable diarrhea Status: Acute (3) Generalized weakness Status: Acute (4) Generalized anxiety disorder Status: Chronic Plan: continue xanax (5) GERD (gastroesophageal reflux disease) Status: Chronic Qualifiers: Esophagitis presence: esophagitis presence not specified Qualified Code(s): K21.9 - Gastro-esophageal reflux disease without esophagitis Plan: continue pepcid and protonix (6) Hypothyroidism Status: Chronic Qualifiers: Hypothyroidism type: acquired Qualified Code(s): E03.9 - Hypothyroidism, unspecified Plan: continue synthroid
[2023-07-17] MEDS: NORCO 10/325 TAB PO PRN ×2 (13:23→20:00)
[2023-07-17] MEDS ORDERED: DRUG FILTER EXTENSION SET ONE (14:24)
[2023-07-17] MEDS ORDERED: CLINIMIX IV SCH ×4 (15:00)
[2023-07-17] MEDS ORDERED: POTASSIUM CHLORIDE IV SCH ×4 (15:00)
[2023-07-17] MEDS ORDERED: [UNRECOGNIZED DRUG - OTHER] IV SCH ×4 (15:00)
[2023-07-17] MEDS ORDERED: TYLENOL 325 MG TAB PO PRN (16:17)
[2023-07-17] MEDS: XANAX PO PRN (20:01)
[2023-07-17] MEDS: RESTORIL CAP 15 MG PO PRN (20:01)
[2023-07-17] MEDS ORDERED: SINGULAIR TAB 10 MG PO SCH (21:00)
[2023-07-18] MEDS: TORADOL 30 MG VIAL IVP SCH ×2 (00:52→05:22)
[2023-07-18 05:10] LABS: BASOPHILS % (AUTO) 0.5 % (0.2-1.0); EOSINOPHILS # (AUTO) 0.2 x10^3/uL (0.0-0.2); EOSINOPHILS % (AUTO) 2.7 % (0.9-2.9); HEMATOCRIT 29.8 % (36.0-47.0); HEMOGLOBIN 10.2 g/dL (12.0-16.0); LYMPHOCYTES # (AUTO) 1.8 X10^3/uL (1.3-2.9); LYMPHOCYTES % (AUTO) 27.9 % (21.0-51.0); MEAN CORPUSCULAR HEMOGLOBIN 31.1 pg (27.0-34.0); MEAN CORPUSCULAR HGB CONC 34.1 g/dL (33.0-35.0); MEAN CORPUSCULAR VOLUME 91.3 fL (80.0-100.0); MEAN PLATELET VOLUME 6.7 fL (7.4-11.0); MONOCYTES # (AUTO) 0.7 x10^3/uL (0.3-0.8); MONOCYTES % (AUTO) 10.4 % (0.0-13.0); NEUTROPHILS # (AUTO) 3.8 x10^3/uL (2.2-4.8); NEUTROPHILS % (AUTO) 58.5 % (42.0-75.0); PLATELET COUNT 251 X10^3/uL (150.0-450.0); RED BLOOD COUNT 3.26 X10^6/uL (3.5-5.4); RED CELL DISTRIBUTION WIDTH 13.7 % (11.6-16.5); WHITE BLOOD COUNT 6.6 X10^3/uL (3.6-10.0)
[2023-07-18] MEDS: SYNTHROID 150 mcg TAB PO SCH (05:22)
[2023-07-18 05:23] LABS: ALANINE AMINOTRANSFERASE 16 Units/L (12-78); ALBUMIN 3.4 g/dL (3.4-5.0); ALKALINE PHOSPHATASE 110 Units/L (46-116); ASPARTATE AMINO TRANSFERASE 17 Units/L (15-37); BLOOD UREA NITROGEN 21 mg/dL (7-18); CALCIUM 8.5 mg/dL (8.5-10.1); CARBON DIOXIDE 26.7 mmol/L (21-32); CHLORIDE 105 mmol/L (98-107); CREATININE 1.01 mg/dL (0.55-1.02); GLUCOSE 92 mg/dL (65-99); MAGNESIUM 2.2 mg/dL (2.0-2.9); POTASSIUM 3.7 mmol/L (3.5-5.1); SODIUM 138 mmol/L (136-145); TOTAL PROTEIN 6.1 g/dL (6.4-8.2); eGFR NON BLACK RACES 56 (>60)
[2023-07-18] MEDS ORDERED: CONSULT PHARMACY - POTASSIUM & MAGNESIUM XX SCH (06:00)
[2023-07-18] MEDS: VOLTAREN 1 % GEL MULTI DOSE TUBE TOP SCH (06:17)
[2023-07-18 08:04] VITALS: BP 150/69; PULSE 89; RESP 22; TEMP 97.6; O2SAT 98
[2023-07-18] MEDS: CIPRO IV 400 MG PREMIX* 400 MG/200 ML IV.SOLN. IV SCH (08:15)
[2023-07-18] MEDS: ALBUMIN HUMAN 25%- 100 ML 100 ML IV SCH (08:15)
[2023-07-18] MEDS: MAG-OX TAB PO SCH (08:16)
[2023-07-18] MEDS: ZESTORETIC 20/25 MG PO SCH (08:16)
[2023-07-18] MEDS: REQUIP PO SCH (08:16)
[2023-07-18] MEDS: EFFEXOR XR 150 MG CAP 24-HR PO SCH (08:16)
[2023-07-18] MEDS: PEPCID TAB 40 MG PO SCH (08:16)
[2023-07-18] MEDS: ZyrTEC TAB 10 MG PO SCH (08:16)
[2023-07-18] MEDS: PROTONIX INJ 40 MG VIAL IVP SCH (08:17)
[2023-07-18] MEDS ORDERED: K-DUR TAB 20 MEQ PO SCH (09:00)
[2023-07-18] MEDS: NS + KCL 20 MEQ/L 1,000 ML IV SCH (10:51)
== END 2023-07-18 11:54 | disposition home or self-care (01) | DRG 641 ==
LOC: U 10:34 → ER 10:34 → U 20:34 → ICU 07-15 00:25
PROVIDERS: ADMIT Internal Medicine; ATTEND Internal Medicine
DX: I10 Essential (primary) hypertension; R53.1 Weakness; E78.2 Mixed hyperlipidemia; E03.8 Other specified hypothyroidism; F41.8 Other specified anxiety disorders; R06.02 Shortness of breath; K21.9 Gastro-esophageal reflux disease without esophagitis; E86.0 Dehydration; R19.7 Diarrhea, unspecified; R26.89 Other abnormalities of gait and mobility; K92.1 Melena; Z20.822 Contact with and (suspected) exposure to COVID-19; Z86.19 Personal history of other infectious and parasitic diseases